=== PATIENT | female | born 1985 | race Caucasian/White ===

== ENCOUNTER 2019-02-22 03:15 | Emergency (ER) | payer OTHER ==
[2019-02-22 03:29] VITALS: BP 144/103
[2019-02-22] MEDS ORDERED: Loperamide 2 MG Cap PO STA (03:42)
[2019-02-22] MEDS ORDERED: Ondansetron 4 MG/2 ML SDV IVPUSH ONE (03:42)
[2019-02-22] MEDS ORDERED: Sodium Chloride 0.9% 1,000 ML IV SCH (03:45)
--- NOTE | 2019-02-22 03:45 | EDM.PDOC ---
ED HPI GENERAL MEDICAL PROBLEM - General Chief Complaint: Gastrointestinal Problem Stated Complaint: POSSIBLE FOOD poisoning Time Seen by Provider: 02/22/19 03:25 Source of Information: Reports: Patient, Family (), RN Notes Reviewed History Limitations: Reports: No Limitations - History of Present Illness INITIAL COMMENTS - FREE TEXT/NARRATIVE: The patient states that she developed nausea, vomiting, and watery, non-bloody diarrhea around 21:00, after eating at a restaurant. She reports midline abdominal pain that developed after she vomited. The pain does not radiate. No back pain. She has not had a fever. No urinary symptoms. No prior similar symptoms. The patient has not taken any [id number] or home remedies. The patient denies eating any bad tasting or spoiled food recently. No similarly ill contacts at home or work. No recent antibiotics. No recent travel. The patient's PCP is ONEAL Duarte. - Related Data Allergies Allergy/AdvReac Type Severity Reaction Status Date / Time Sulfa (Sulfonamide Allergy Swollen Verified 10/24/16 19:56 Antibiotics) Tongue Home Meds: Home Meds Ondansetron [Zofran ODT] 1 tab PO Q8H PRN #10 tab.dis 02/22/19 [Rx] Past Medical History HEENT History: Reports: Allergic Rhinitis Respiratory History: Reports: Asthma (Exercise-induced asthma, suspected) Endocrine/Metabolic History: Reports: Obesity/BMI 30+ - Past Surgical History HEENT Surgical History: Reports: Naso-Sinus Surgery (Bilateral turbinectomy), Oral Surgery (wisdom teeth extraction), Other (See Below) (Mandible modification ) GI Surgical History: Reports: Cholecystectomy (2012) Female Surgical History: Reports: Section (x 1) Social & Family History - Family History Family Medical History: Noncontributory - Tobacco Use Smoking Status *Q: Never Smoker - Caffeine Use Caffeine Use: Reports: None - Alcohol Use Alcohol Use History: Yes Alcohol Use Frequency: Socially - Recreational Drug Use Recreational Drug Use: No - Living Situation & Occupation Living situation: Reports: , with Spouse, with Family (1 child) 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 ED EXAM, GI/ABD - Physical Exam Exam: See Below Exam Limited By: No Limitations General Appearance: Alert, WD/WN, Mild Distress (Appears uncomfortable) Eyes: Bilateral: Normal Appearance, EOMI Ears: Normal External Exam, Hearing Grossly Normal Nose: Normal Inspection Throat/Mouth: Normal Inspection, Normal Lips, Normal Voice, No Airway Compromise Head: Atraumatic, Normocephalic Neck: Normal Inspection, Full Range of Motion Respiratory/Chest: No Respiratory Distress, Lungs Clear, Normal Breath Sounds, No Accessory Muscle Use Cardiovascular: Normal Peripheral Pulses, Regular Rate, Rhythm, No Gallop, No JVD, No Murmur, No Rub GI/Abdominal Exam: Normal Bowel Sounds, Soft, No Organomegaly, No Distention, No Abnormal Bruit, No Mass, Tender (Primarily to the upper abdomen, left greater than right), Other (Obese) (Female) Exam: Deferred Rectal (Female) Exam: Deferred Back Exam: Normal Inspection, Full Range of Motion. No: CVA Tenderness (L), CVA Tenderness (R) Extremities: Normal Inspection, Normal Range of Motion, No Pedal Edema, Normal Capillary Refill Neurological: Alert, Oriented, Normal Cognition, No Motor/Sensory Deficits Psychiatric: Normal Affect Skin Exam: Warm, Dry, Intact, Normal Color, No Rash Course - Vital Signs Last Recorded V/S: Last Vital Signs Temp 36.7 C 02/22/19 03:23 Pulse 92 02/22/19 03:23 Resp 18 02/22/19 03:23 BP 144/103 H 02/22/19 03:23 Pulse Ox 98 02/22/19 03:23 Orthostatic Blood Pressure [ 143/82 Supine] - Orders/Labs/Meds Orders: Active Orders 24 hr Category Date Time Status Sodium Chloride 0.9% [Normal Saline] 1,000 ml Med 02/22/19 03:45 Active IV ASDIRECTED Medication Orders Sodium Chloride (Normal Saline) 1,000 mls @ 150 mls/hr IV ASDIRECTED LETITIA Last Admin: 02/22/19 03:48 Dose: 150 mls/hr Meds: Medications Generic Name Dose Route Start Last Admin Trade Name Freq PRN Reason Stop Dose Admin Sodium Chloride 1,000 mls @ 150 mls/hr 02/22/19 03:45 02/22/19 03:48 Normal Saline IV 150 mls/hr ASDIRECTED LETITIA Administration Discontinued Medications Generic Name Dose Route Start Last Admin Trade Name Freq PRN Reason Stop Dose Admin Loperamide HCl 4 mg 02/22/19 03:42 02/22/19 04:34 Imodium PO 02/22/19 03:43 4 mg ONETIME STA Administration Ondansetron HCl 4 mg 02/22/19 03:42 02/22/19 03:49 Zofran IVPUSH 02/22/19 03:43 4 mg ONETIME ONE Administration - Re-Assessments/Exams Free Text/Narrative Re-Assessment/Exam: 02/22/19 03:43 The patient is suffering from gastroenteritis, and by her history, it is most likely viral in etiology, since she has no fever or bloody diarrhea, and no history of eating bad tasting food, or food that had been left out for a long time. Since her symptoms have been relatively brief, I don't see an indication for performing blood work - it is unlikely that she would have suffered any significant fluid or electrolyte shifts in such a short period of time, however , we can treat her symptoms with IV Zofran and IV fluid, and, once her nausea is under control, oral loperamide. 02/22/19 05:06 The patient is doing well. She did not vomit after she received IV Zofran, and was able to take some water and loperamide. She is now sleeping comfortably. I will discharge her home with a prescription for Zofran ODT, along with over-the- counter loperamide and some dietary recommendations. Departure - Departure Time of Disposition: 05:07 Disposition: Home, Self-Care 01 Condition: Good Clinical Impression: Viral gastroenteritis - Discharge Information *PRESCRIPTION DRUG MONITORING PROGRAM REVIEWED*: Not Applicable *COPY OF PRESCRIPTION DRUG MONITORING REPORT IN PATIENT TISH: Not Applicable Referrals: Judy Garcia PA-C [Primary Care Provider] - Forms: ED Department Discharge Additional Instructions: You were seen in the emergency room for nausea, vomiting, and watery diarrhea, along with some midline abdominal pain. You were given IV fluid, the anti-nausea medicine Zofran, and the anti- diarrheal medicine loperamide in the ER, with improvement in your symptoms. A prescription for Zofran has been sent to the [facility], located at [address] just south and across the [address] from street from [facility]. The pharmacy will be open between noon and 4:00 this afternoon. Dissolve one tablet of Zofran on your tongue up to every 8 hours, as needed for nausea/vomiting. Take one tablet (2 mg) of loperamide (Imodium) after each loose bowel movement, to a maximum of 8 tablets (16 mg) within a 24-hour period. Loperamide is available [id number], and generic is just as good as the brand name. Stay adequately hydrated. Gatorade or Powerade are best. Avoid juice and milk, as these may make your diarrhea worse. Eat a bland diet. Saltine crackers and chicken noodle soup are an excellent choice. You may also have rice, oatmeal, bananas, or toast. Follow-up with your PCP, ONEAL Duarte, as needed. If any other problems, please do not hesitate to return to the ER. - My Orders Last 24 Hours: My Active Orders 02/22/19 03:45 Sodium Chloride 0.9% [Normal Saline] 1,000 ml IV ASDIRECTED - Assessment/Plan Last 24 Hours: My Active Orders 02/22/19 03:45 Sodium Chloride 0.9% [Normal Saline] 1,000 ml IV ASDIRECTED
== END 2019-02-22 05:25 | disposition home or self-care (01) ==
LOC: JD.ED 03:15
DX: A08.4 Viral intestinal infection, unspecified (principal); E66.9 Obesity, unspecified; Z88.2 Allergy status to sulfonamides; Z90.49 Acquired absence of other specified parts of digestive tract; Z98.890 Other specified postprocedural states
CPT/HCPCS: 96361; 96374; 99283; A9270; J2405; J7040

== ENCOUNTER 2020-07-01 05:29 | Inpatient (IN) | payer OTHER ==
--- NOTE | 2020-06-29 06:59 | PCM.LDHP ---
L&D History of Present Illness - General Date of Service: 07/01/20 Admit Problem/Dx: Admission Diagnosis/Problem Admission Diagnosis/Problem 06/29/20 06:47 Nieves is a 34-year-old 2 para 1-0-0-1 white female who is scheduled to be admitted on 07/01/2020 for elective repeat section. Her LINDA is 07/04/2020 placing her at 39-4/7 weeks gestational age upon admission. Source of Information: Patient History Limitations: Reports: No Limitations - History of Present Illness Introduction:: Nieves is a 34-year-old 2 para 1-0-0-1 white female who is scheduled to be admitted on 07/01/2020 for elective repeat section. Her LINDA is 07/04/2020 placing her at 39-4/7 weeks gestational age upon admission. Elective repeat section, its risks, benefits, alternatives of care and follow-up were discussed in detail with the patient. She appears understand, wishes to proceed and has signed consent. 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 Patient reported having menarche at age 13. Cycles q. 28 days, no control at the time of conception. Last menstrual period was relatively certain. Her previous etc. history includes a delivery of a 10 pound 4 ounce male on 11/11/2013 at 39 weeks gestational age. Delivery was for diagnosis of macrosomia. She has spinal anesthetic at that time. Child's name is Nazario. course: Patient was first seen for this on 12/16/2019. She was seen on a regular basis throughout the . She has had normal vital signs throughout the . Her weight gain has been from 267 pounds up to 292.8 pounds for a 25 pound increase. Her fundal height growth has been ahead of schedule and on last evaluation was at 41 cm. Baby is felt to be in a vertex presentation. Her group B strep screen is negative. She had a pre-quell noninvasive test screen during the which was normal. She has an essential tremor. She has a history of asthma. Her Tdap was administered on 04/26/2020. Her risk factors include history of macrosomia, obesity, history of previous section, asthma. Laboratory testing in shows blood to be a be positive with a negative antibody screen. Her first hemoglobin was 14.5 g/dL and platelets were 282,000. Pap smear was negative but was significant for no endocervical cells. She is rubella immune. RPR is nonreactive. Her urine culture was negative. Hepatitis B surface antigen and HIV assays were both negative. Chlamydia and gonorrhea tests were negative. Second trimester labs showed a hemoglobin of 11.2 g/dL and platelets at 270,000. Her diabetic screening test was 119. Her RPR on 04/11/2020 was nonreactive. Her group B strep screen was negative. Allergies: Sulfa which causes anaphylaxis Medications: 1. Ventolin HFA 108 MCG per action. Patient uses 1 to 2 puffs every 4-6 hours as needed. She has not had to use this much during the 2. Tylenol 325 mg tablets 1-2 every 6 hours as needed for pain 3. Fish oil caps 2 daily 4. She eats fruits and greens capsule every day. 5. vitamins daily 6. Probiotic caps. Past medical history: 1. History of depression with last 2. Anaphylaxis with sulfa medication therapy. Past surgical history: 1. 2014 pound 4 ounce baby 2. Cholecystectomy 3. Jaw surgery 4. Sinus surgery Family history: Mother is alive and well. Father is alive and well but with some thyroid dysfunction and high blood pressure on medications 2 brothers are alive and well. One sister alive and well. Maternal grandmother at age 70 secondary to lung disease with a history of smoking. Maternal grandfather at age 60 from heart disease and history of rheumatoid arthritis. Paternal grandmother is alive in her 80s but suffers from Alzheimer's disease paternal grandfather is alive but has bipolar disorder. There is no other family history of cancer, bleeding or clotting disorders, anesthesia related issues or related problems. Social history: Patient is . is Serafin. Patient works at [employer]. They live in [place], [place]. She does not use any significant also alcohol, drugs or tobacco. Review of systems: In general patient has no complaints. Skin: Negative Lungs: No infectious symptoms or shortness of breath Cardiovascular: No chest pain or exercise intolerance Breasts: No lumps, changes in size, pain, dimpling, discharge or axillary or supraclavicular concerns. GI: Negative : Negative Musculoskeletal: Negative Neurological: Negative Physical exam: In general the patient is well-developed, well-nourished, pleasant female of stated age in no acute distress. Reports good activity. On last evaluation in clinic her weight was 292.8 pounds with first weight at 267 pounds. Blood pressure is 125/85. heart rate was 176 and fundal height was 41 cm. He was in a vertex presentation. Skin is warm dry without lesions. HEENT, neck and back within normal limits. Lungs are clear with good breath sounds in all lung cortés. Cardiovascular exam shows regular and rhythm without murmurs. Abdomen is gravid with fundal height of 41 cm. Genital exam deferred Extremities and neurological exam are grossly within normal limits. - Related Data Allergies/Adverse Reactions: Allergies Allergy/AdvReac Type Severity Reaction Status Date / Time Sulfa (Sulfonamide Allergy Swollen Verified 10/24/16 19:56 Antibiotics) Tongue Home Medications: Home Meds Ondansetron [Zofran ODT] 1 tab PO Q8H PRN #10 tab.dis 02/22/19 [Rx] Past Medical History HEENT History: Reports: Allergic Rhinitis Respiratory History: Reports: Asthma Endocrine/Metabolic History: Reports: Obesity/BMI 30+ - Past Surgical History HEENT Surgical History: Reports: Naso-Sinus Surgery, Oral Surgery, Other (See Below) GI Surgical History: Reports: Cholecystectomy Female Surgical History: Reports: Section Social & Family History - Family History Family Medical History: Noncontributory - Caffeine Use Caffeine Use: Reports: None - Living Situation & Occupation Living situation: Reports: , with Spouse, with Family (1 child) 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 39-4/7-week intrauterine , history of previous section done for macrosomia admitted for elective repeat section. 2. Group B strep negative 3. Patient plans to breast-feed 4. Prequel test was negative. 5. Diabetic screening test negative. 6. Tdap given on 04/26/2020 7. Patient is rubella immune 8. Risk factors include obesity, history of macrosomic baby, large for gestational age fundal height, history of asthma, history of previous section Plan: 1. Repeat low uterine segment transverse section through Pfannenstiel skin incision under spinal block. Procedure, risk, benefits, alternatives of care and follow-up were discussed in detail with patient. She appears to understand and wishes to proceed 2. DVT prophylaxis with SCDs 3. Infection prophylaxis with Ancef 3 g IV preop 4. Routine preoperative laboratory evaluation including COVID testing, CBC, type and screen, RPR 4. Support breast-feeding decision
[~2020-07-01 05:29] MED LIST: Sodium Chloride 0.9% 10 ML Syringe FLUSH PRN
[2020-07-01] MEDS ORDERED: Citric Acid/Sodium Citrate Solution 30 ML Cup PO ONE (06:00)
[2020-07-01] MEDS ORDERED: Oxytocin/Lactated Ringers 20 UNIT/1,000 ML BAG IV SCH (06:00)
[2020-07-01] MEDS ORDERED: ceFAZolin 1 GM in Premix Bag 1 BAG IV ONE (06:00)
[2020-07-01] MEDS ORDERED: Metoclopramide 10 MG/2 ML SDV IVPUSH ONE (06:00)
[2020-07-01] MEDS: Lactated Ringers 1,000 ML IV SCH ×2 (06:05→07:27)
[2020-07-01] MEDS ORDERED: ceFAZolin 1 GM Vial ONE ×2 (07:08)
[2020-07-01] MEDS ORDERED: Lactated Ringers 2,000 ML ONE (07:08)
[2020-07-01] MEDS ORDERED: Oxytocin 10 Units/1 ML SDV ONE ×2 (07:08→07:09)
[2020-07-01] MEDS ORDERED: Ketorolac 30 MG/ML SDV ONE (07:08)
[2020-07-01] MEDS ORDERED: Ondansetron 4 MG/2 ML SDV ONE (07:08)
[2020-07-01] MEDS ORDERED: Morphine PF 10 MG/10 ML SDV ONE (07:11)
[2020-07-01] MEDS ORDERED: Bupivacaine 0.5% 30 ML SDV ONE (07:14)
[2020-07-01] MEDS ORDERED: Scopolamine 1.5 MG Transdermal Patch TOP ONE (07:36)
[2020-07-01] MEDS ORDERED: Ondansetron 4 MG/2 ML SDV IVPUSH PRN (08:04)
[2020-07-01] MEDS ORDERED: fentaNYL 100 MCG/2 ML SDV IVPUSH PRN (08:04)
[2020-07-01] MEDS ORDERED: diphenhydrAMINE 50 MG/ML SDV IVPUSH PRN (08:04)
--- NOTE | 2020-07-01 08:30 | PCM.PREANE ---
Preanesthetic Assessment - Procedure Proposed Procedure: Repeat cesarian section - Anesthesia/Transfusion/Family Hx Anesthesia History: Prior Anesthesia Reaction (PONV and itching) Type of Anesthesia Reaction: Excessive Nausea/Vomiting, Excessive Itching Family History of Anesthesia Reaction: No Transfusion History: No Prior Transfusion(s) - Review of Systems General: No Symptoms Pulmonary: No Symptoms Cardiovascular: No Symptoms Gastrointestinal: No Symptoms Neurological: No Symptoms Other: Reports: None - Physical Assessment NPO Status Date: 06/30/20 NPO Status Time: 20:30 Height: 5 ft 11 in Weight: 292 lb ASA Class: 2 Mental Status: Alert & Oriented x3 Airway Class: Mallampati = 2 Dentition: Reports: Normal Dentition Thyro-Mental Finger Breadths: 3 Mouth Opening Finger Breadths: 3 ROM/Head Extension: Full Lungs: Clear to Auscultation, Normal Respiratory Effort Cardiovascular: Regular Rate, Regular Rhythm - Lab Values: Laboratory Last Values WBC 9.89 K/mm3 (3.98-10.04) 07/01/20 06:00 RBC 3.84 M/mm3 (3.98-5.22) L 07/01/20 06:00 Hgb 11.4 gm/dl (11.2-15.7) 07/01/20 06:00 Hct 33.6 % (34.1-44.9) L 07/01/20 06:00 MCV 87.5 fl (79.4-94.8) 07/01/20 06:00 MCH 29.7 pg (25.6-32.2) 07/01/20 06:00 MCHC 33.9 g/dl (32.2-35.5) 07/01/20 06:00 RDW Std Deviation 39.3 fL (36.4-46.3) 07/01/20 06:00 Plt Count 260 K/mm3 (182-369) 07/01/20 06:00 MPV 10.3 fl (9.4-12.3) 07/01/20 06:00 Neut % (Auto) 69.8 % (34.0-71.1) 07/01/20 06:00 Lymph % (Auto) 20.1 % (19.3-51.7) 07/01/20 06:00 Towns % (Auto) 8.5 % (4.7-12.5) 07/01/20 06:00 Eos % (Auto) 1.2 (0.7-5.8) 07/01/20 06:00 Baso % (Auto) 0.1 % (0.1-1.2) 07/01/20 06:00 Neut # (Auto) 6.90 K/mm3 (1.56-6.13) H 07/01/20 06:00 Lymph # (Auto) 1.99 K/mm3 (1.18-3.74) 07/01/20 06:00 Towns # (Auto) 0.84 K/mm3 (0.24-0.36) H 07/01/20 06:00 Eos # (Auto) 0.12 K/mm3 (0.04-0.36) 07/01/20 06:00 Baso # (Auto) 0.01 K/mm3 (0.01-0.08) 07/01/20 06:00 SARS-CoV-2 RNA (NORBERT) Negative (NEGATIVE) 07/01/20 05:45 - Allergies Allergies/Adverse Reactions: Allergies Allergy/AdvReac Type Severity Reaction Status Date / Time Sulfa (Sulfonamide Allergy Swollen Verified 10/24/16 19:56 Antibiotics) Tongue - Anesthesia Plan Pre-Op Medication Ordered: None, Other - Acknowledgements Anesthesia Type Planned: Spinal Pt an Appropriate Candidate for the Planned Anesthesia: Yes Alternatives and Risks of Anesthesia Discussed w Pt/Guardian: Yes Pt/Guardian Understands and Agrees with Anesthesia Plan: Yes PreAnesthesia Questionnaire HEENT History: Reports: Allergic Rhinitis Respiratory History: Reports: Asthma Other Respiratory History: uses ventolin inhaler as needed Gastrointestinal History: Reports: None Genitourinary History: Reports: UTI, Recurrent Other Genitourinary History: frequent uti, improved after gallbladder surgery 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: Neurological History: Reports: Other (See Below) Other Neuro History: essential tremor since teens Endocrine/Metabolic History: Reports: Obesity/BMI 30+ - Past Surgical History HEENT Surgical History: Reports: Naso-Sinus Surgery, Oral Surgery, Other (See Below) GI Surgical History: Reports: Cholecystectomy Female Surgical History: Reports: Section Other Female Surgeries/Procedures: 2014 Endocrine Surgical History: Reports: None Neurological Surgical History: Reports: None - SUBSTANCE USE Smoking Status *Q: Never Smoker Second Hand Smoke Exposure: No Recreational Drug Use History: No - HOME MEDS Home Medications: Home Meds Acetaminophen [Tylenol] 325 mg PO Q6HR PRN 06/30/20 [History] Albuterol [Ventolin HFA] 1 - 2 puff INH Q4H PRN 06/30/20 [History] Doxylamine Succinate [Unisom Sleep Aid] 25 mg PO BEDTIME PRN 06/30/20 [History] L.acidoph,Paracasei, B.lactis [Probiotic] 1 each PO DAILY 06/30/20 [History] [place]-3 Fatty Acids/Fish Oil [Fish Oil 1,000 mg Capsule] 2 each PO DAILY 06/30/20 [History] Pnv No.95/Ferrous Fum/Folic AC [ Vitamin Tablet] 1 each PO DAILY 06/30/20 [History] Pyridoxine HCl (Vitamin B6) [B-6] 1 tab PO BEDTIME 06/30/20 [History] - CURRENT (IN HOUSE) MEDS Current Meds: Current Medications Diphenhydramine HCl (Benadryl) 25 mg IVPUSH Q6H PRN PRN Reason: Pruritis Fentanyl (Sublimaze) 50 mcg IVPUSH Q5M PRN PRN Reason: Pain Oxytocin/Lactated Ringer's (Pitocin In Lr 20 Units/1,000 Ml) 20 unit in 1,000 mls @ 500 mls/hr IV TITRATE LETITIA; Protocol Lactated Ringer's (Ringers, Lactated) 1,000 mls @ 125 mls/hr IV ASDIRECTED LETITIA Last Admin: 07/01/20 07:27 Dose: 125 mls/hr Documented by: Ondansetron HCl (Zofran) 4 mg IVPUSH ONETIME PRN PRN Reason: Nausea/Vomiting Sodium Chloride (Saline Flush) 10 ml FLUSH ASDIRECTED PRN PRN Reason: Keep Vein Open Discontinued Medications Bupivacaine HCl (Marcaine 0.5%) Confirm Administered Dose 30 ml .ROUTE .STK-MED ONE Stop: 07/01/20 07:15 Cefazolin Sodium (Ancef) Confirm Administered Dose 2 gm .ROUTE .STK-MED ONE Stop: 07/01/20 07:09 Cefazolin Sodium (Ancef) Confirm Administered Dose 1 gm .ROUTE .STK-MED ONE Stop: 07/01/20 07:09 Citric Acid/Sodium Citrate (Bicitra Solution) 30 ml PO ONETIME ONE Stop: 07/01/20 06:01 Last Admin: 07/01/20 07:26 Dose: 30 ml Documented by: Cefazolin Sodium/Dextrose 1 gm (/ Premix) 50 mls @ 100 mls/hr IV ONETIME ONE Stop: 07/01/20 06:29 Lactated Ringer's (Ringers, Lactated) Confirm Administered Dose 2,000 mls @ as directed .ROUTE .STK-MED ONE Stop: 07/01/20 07:09 Ketorolac Tromethamine (Toradol) Confirm Administered Dose 30 mg .ROUTE .STK-MED ONE Stop: 07/01/20 07:09 Metoclopramide HCl (Reglan) 10 mg IVPUSH ONETIME ONE Stop: 07/01/20 06:01 Last Admin: 07/01/20 07:26 Dose: 10 mg Documented by: Miscellaneous Medication (Phenylephrine 1 Mg/10 Ml-Ns) Confirm Administered Dose 1 mg .ROUTE .STK-MED ONE Stop: 07/01/20 08:07 Morphine Sulfate (Duramorph Pf) Confirm Administered Dose 10 mg .ROUTE .STK-MED ONE Stop: 07/01/20 07:12 Ondansetron HCl (Zofran) Confirm Administered Dose 4 mg .ROUTE .STK-MED ONE Stop: 07/01/20 07:09 Oxytocin (Pitocin) Confirm Administered Dose 10 unit .ROUTE .STK-MED ONE Stop: 07/01/20 07:09 Oxytocin (Pitocin) Confirm Administered Dose 10 unit .ROUTE .STK-MED ONE Stop: 07/01/20 07:10 Scopolamine (Transderm-Scop) 1.5 mg TOP ONETIME ONE Stop: 07/01/20 07:37
--- NOTE | 2020-07-01 08:51 | PCM.POSTAN ---
POST ANESTHESIA ASSESSMENT - MENTAL STATUS Mental Status: Alert, Oriented - VITAL SIGNS Vital Signs: 133/67 98% 91 12 97.4f - RESPIRATORY Respiratory Status: Respiratory Rate WNL, Airway Patent, O2 Saturation Stable, Supplemental Oxygen - CARDIOVASCULAR CV Status: Pulse Rate WNL, Blood Pressure Stable - GASTROINTESTINAL GI Status: No Symptoms - PAIN Pain Score: 0 - POST OP HYDRATION Hydration Status: Adequate & Stable
[2020-07-01] MEDS ORDERED: Non-Formulary Medication 1 Each (Albuterol 0 PUFF) INH PRN (08:54)
--- NOTE | 2020-07-01 09:04 | PCM.OPNOTE ---
- General Post-Op/Procedure Note Date of Surgery/Procedure: 07/01/20 Operative Procedure(s): Repeat low in segment transverse section through Pfannenstiel skin incision under spinal block. Findings: Uterus tubes ovaries consistent with term . Uterus tubes ovaries normal in appearance. Baby in vertex presentation. Amniotic fluid clear in normal amounts. Lower uterine segment was thin at no more than 4 mm. Baby was a female born at 0813 hrs. with Apgars of 8 and 10. 9 pounds 4 ounces Pre Op Diagnosis: 1. 39-4/7-week intrauterine , history of previous section with desire for repeat section. 2. History of size greater than dates Post-Op Diagnosis: Same Anesthesia Technique: Spinal Other Anesthesia Type: Marcaine 0.5% - 20 cc local Primary Surgeon: Deandre Milan Secondary Surgeon: Elissa Marrero Anesthesia Provider: Jonathon Ferrera Reason Belt Worker Was Necessary: Retraction, assistance, patient safety, quality of care. Fluid Replacement, Intraop: 2,700 Output, Urine Amount: 150 EBL in mLs: 400 Drain/Tube Comments:: Indwelling bladder catheter Complications: None Condition: Good Free Text/Narrative:: Surgery duration: 29 minutes Surgery duration: Procedure: The patient is appropriately consented. Patient was transferred to the room and placed in a sitting position. Spinal anesthesia was administered. After confirmation of adequate anesthesia patient was placed in a supine position with a wedge under her right side to facilitate left lateral positioning. The patient was prepped and draped in usual fashion after Perez catheter was already placed . The anesthetic was checked and found to be adequate. 20 mL of Marcaine 0.5% was injected locally in the Pfannenstiel incision site. The Pfannenstiel skin incision was then made and carried down through skin, subcutaneous and fascial layers. The fascia was then undermined moscoso periorly and inferiorly to allow for adequate operating room. The recti muscles midline and preperitoneal fat was bluntly dissected. Peritoneal cavity was entered longitudinally. The vesicouterine peritoneum was then incised transversely and bladder flap was developed. Myometrium was incised transversely to the level of the amniotic sac. This incision was extended bilaterally in a blunt fashion. The amniotic sac was then ruptured resulting in clear amniotic fluid. A hand is placed in the low uterine segment and the baby's head was brought forth through the incision. The baby was completely delivered using fundal pressure in a routine fashion. The nose and mouth were bulb suctioned. Baby's cord was clamped x2 cut and baby was handed off to attending office manager Dr Mckeon. Placenta was expressed after cord blood was obtained. Uterus was then exteriorized to allow for easier closure. The cervix was assessed and found to be dilated adequately to allow egress of blood. The uterus was closed in 2 layers. The first layer a running locked suture of 0 Monocryl, the second layer a running locked vertical mattress suture of 0 Monocryl. [id number] suture was placed at right end of the incision to control 1 bleeder. Hemostasis confirmed at this time. Sponge instrument needle counts are correct. The uterus was returned to the abdominal cavity and lateral gutters were cleared of blood. Once again sponge needle counts are correct. The anterior abdominal wall was closed with a #1 PDS suture from angle to angle. The subcutaneous area was found to be free of any bleeders. 3 interrupted sutures of 3-0 Monocryl were used to reapproximate the subcutaneous layer.Skin was closed with a running subcuticular stitch of 3-0 Monocryl in a vertical mattress suture fashion using a Noam needle. Prineo mesh/glue was then applied to further approximate the incision. It should be noted that patient received 3 g of Ancef preoperatively for infection prophylaxis and had Pitocin infused after delivery of the placenta to facilitate uterine contraction. She also had sequential compression stockings in place for DVT prophylaxis. Patient was discharged from the operating room in satisfactory condition.
[2020-07-01] MEDS ORDERED: Docusate Sodium 100 MG Cap PO PRN (10:11)
[2020-07-01] MEDS ORDERED: Naloxone 0.4 MG/ML SDV IVPUSH PRN (10:11)
[2020-07-01] MEDS ORDERED: Acetaminophen/oxyCODONE 325-5 MG Tab PO PRN (10:11)
[2020-07-01] MEDS ORDERED: Ondansetron 4 MG/2 ML SDV IV PRN (10:11)
[2020-07-01] MEDS ORDERED: Dextrose 5%-Lactated Ringers 1,000 ML IV SCH (10:11)
[2020-07-01] MEDS ORDERED: ePHEDrine 50 MG/ML SDV IVPUSH PRN (10:11)
[2020-07-01] MEDS: diphenhydrAMINE 50 MG/ML SDV IVPUSH PRN ×2 (11:01→20:51)
[2020-07-01] MEDS: Prenatal Multivitamin with Calcium/Folic Acid/Iron Tab PO SCH (11:03)
[2020-07-01] MEDS: Ketorolac 30 MG/ML SDV IVPUSH SCH ×3 (11:04→21:02)
[2020-07-01] MEDS: Simethicone 80 MG Tab.Chew PO SCH ×3 (12:58→21:01)
[2020-07-01] MEDS ORDERED: Ketorolac 30 MG/ML SDV IVPUSH SCH (13:30)
--- NOTE | 2020-07-02 02:30 | PCM.PNPP ---
- General Info Date of Service: 07/02/20 Functional Status: Reports: Pain Controlled, Tolerating Diet, Ambulating, Urinating - Review of Systems General: Reports: No Symptoms Pulmonary: Reports: No Symptoms Cardiovascular: Reports: No Symptoms Gastrointestinal: Reports: No Symptoms Genitourinary: Reports: No Symptoms Musculoskeletal: Reports: No Symptoms Neurological: Reports: No Symptoms - Patient Data Vital Signs - Most Recent: Last Vital Signs Temp 36.7 C 07/02/20 00:10 Pulse 82 07/02/20 00:10 Resp 16 07/02/20 02:00 BP 130/71 07/02/20 00:10 Pulse Ox 98 07/02/20 02:00 Weight - Most Recent: 132.449 kg I&O - Last 24 Hours: Intake & Output 07/01/20 07/01/20 07/02/20 14:59 22:59 06:59 Intake Total 3000 4040 Output Total 550 400 650 Balance 2450 3640 -650 Lab Results - Last 24 Hours: Laboratory Results - last 24 hr 07/01/20 07/01/20 07/01/20 Range/Units 05:45 06:00 06:00 WBC (3.98-10.04) K/mm3 RBC (3.98-5.22) M/mm3 Hgb (11.2-15.7) gm/dl Hct (34.1-44.9) % MCV (79.4-94.8) fl MCH (25.6-32.2) pg MCHC (32.2-35.5) g/dl RDW Std Deviation (36.4-46.3) fL Plt Count (182-369) K/mm3 MPV (9.4-12.3) fl Neut % (Auto) (34.0-71.1) % Lymph % (Auto) (19.3-51.7) % [place] % (Auto) (4.7-12.5) % Eos % (Auto) (0.7-5.8) Baso % (Auto) (0.1-1.2) % Neut # (Auto) (1.56-6.13) K/mm3 Lymph # (Auto) (1.18-3.74) K/mm3 [place] # (Auto) (0.24-0.36) K/mm3 Eos # (Auto) (0.04-0.36) K/mm3 Baso # (Auto) (0.01-0.08) K/mm3 RPR Non-reactive (NONREACTIVE) SARS-CoV-2 RNA (NORBERT) Negative (NEGATIVE) Blood Type AB POSITIVE Gel Antibody Screen Negative 07/01/20 Range/Units 06:00 WBC 9.89 (3.98-10.04) K/mm3 RBC 3.84 L (3.98-5.22) M/mm3 Hgb 11.4 (11.2-15.7) gm/dl Hct 33.6 L (34.1-44.9) % MCV 87.5 (79.4-94.8) fl MCH 29.7 (25.6-32.2) pg MCHC 33.9 (32.2-35.5) g/dl RDW Std Deviation 39.3 (36.4-46.3) fL Plt Count 260 (182-369) K/mm3 MPV 10.3 (9.4-12.3) fl Neut % (Auto) 69.8 (34.0-71.1) % Lymph % (Auto) 20.1 (19.3-51.7) % [place] % (Auto) 8.5 (4.7-12.5) % Eos % (Auto) 1.2 (0.7-5.8) Baso % (Auto) 0.1 (0.1-1.2) % Neut # (Auto) 6.90 H (1.56-6.13) K/mm3 Lymph # (Auto) 1.99 (1.18-3.74) K/mm3 [place] # (Auto) 0.84 H (0.24-0.36) K/mm3 Eos # (Auto) 0.12 (0.04-0.36) K/mm3 Baso # (Auto) 0.01 (0.01-0.08) K/mm3 RPR (NONREACTIVE) SARS-CoV-2 RNA ([facility]ERT) (NEGATIVE) Blood Type Gel Antibody Screen Med Orders - Current: Current Medications Diphenhydramine HCl (Benadryl) 25 mg IVPUSH Q6H PRN PRN Reason: Itching or Nausea Last Admin: 07/01/20 20:51 Dose: 25 mg Documented by: Docusate Sodium (Colace) 100 mg PO Q12H PRN PRN Reason: Constipation Ephedrine Sulfate (Ephedrine Sulfate) 5 mg IVPUSH SEECOMMENT PRN PRN Reason: Other Naloxone HCl (Narcan) 0.1 mg IVPUSH SEECOMMENT PRN PRN Reason: Respiratory Depression Non-Formulary Medication (Albuterol) 1 - 2 puff INH Q4H PRN PRN Reason: Shortness of Breath Ondansetron HCl (Zofran) 4 mg IV Q4H PRN PRN Reason: Nausea/Vomiting Oxycodone/Acetaminophen (Percocet 325-5 Mg) 1 tab PO Q4H PRN PRN Reason: Pain (moderate 4-6) Oxycodone/Acetaminophen (Percocet 325-5 Mg) 2 tab PO Q4H PRN PRN Reason: Pain (severe 7-10) Prenat Multivit/[place]/Iron/Folic Ac ( Plus Iron) 1 each PO DAILY [facility] Last Admin: 07/01/20 11:03 Dose: 1 each Documented by: Simethicone (Simethicone) 160 mg PO QID [facility] Last Admin: 07/01/20 21:01 Dose: 160 mg Documented by: Discontinued Medications Bupivacaine HCl (Marcaine 0.5%) Confirm Administered Dose 30 ml .ROUTE .STK-MED ONE Stop: 07/01/20 07:15 Last Admin: 07/01/20 08:09 Dose: 20 ml Documented by: Cefazolin Sodium (Ancef) Confirm Administered Dose 2 gm .ROUTE .STK-MED ONE Stop: 07/01/20 07:09 Cefazolin Sodium (Ancef) Confirm Administered Dose 1 gm .ROUTE .STK-MED ONE Stop: 07/01/20 07:09 Citric Acid/Sodium Citrate (Bicitra Solution) 30 ml PO ONETIME ONE Stop: 07/01/20 06:01 Last Admin: 07/01/20 07:26 Dose: 30 ml Documented by: Diphenhydramine HCl (Benadryl) 25 mg IVPUSH Q6H PRN PRN Reason: Pruritis Fentanyl (Sublimaze) 50 mcg IVPUSH Q5M PRN PRN Reason: Pain Cefazolin Sodium/Dextrose 1 gm (/ Premix) 50 mls @ 100 mls/hr IV ONETIME ONE Stop: 07/01/20 06:29 Last Admin: 07/01/20 10:33 Dose: Not Given Documented by: Oxytocin/Lactated Ringer's (Pitocin In Lr 20 Units/1,000 Ml) 20 unit in 1,000 mls @ 500 mls/hr IV TITRATE LETITIA; Protocol Lactated Ringer's (Ringers, Lactated) 1,000 mls @ 125 mls/hr IV ASDIRECTED [facility] Last Admin: 07/01/20 07:27 Dose: 125 mls/hr Documented by: Lactated Ringer's (Ringers, Lactated) Confirm Administered Dose 2,000 mls @ as directed .ROUTE .STK-MED ONE Stop: 07/01/20 07:09 Dextrose/Lactated Ringer's (Dextrose 5%-Lactated Ringers) 1,000 mls @ 125 mls/hr IV ASDIRECTED [facility] Stop: 07/01/20 18:10 Last Admin: 07/01/20 11:42 Dose: 125 mls/hr Documented by: Ketorolac Tromethamine (Toradol) Confirm Administered Dose 30 mg .ROUTE .STK-MED ONE Stop: 07/01/20 07:09 Ketorolac Tromethamine (Toradol) 30 mg IVPUSH Q6H [facility] Stop: 07/02/20 01:31 Ketorolac Tromethamine (Toradol) 30 mg IVPUSH Q6H [facility] Stop: 07/01/20 20:31 Last Admin: 07/01/20 21:02 Dose: 30 mg Documented by: Metoclopramide HCl (Reglan) 10 mg IVPUSH ONETIME ONE Stop: 07/01/20 06:01 Last Admin: 07/01/20 07:26 Dose: 10 mg Documented by: Miscellaneous Medication (Phenylephrine 1 Mg/10 Ml-Ns) Confirm Administered Dose 1 mg .ROUTE .STK-MED ONE Stop: 07/01/20 08:07 Morphine Sulfate (Duramorph Pf) Confirm Administered Dose 10 mg .ROUTE .STK-MED ONE Stop: 07/01/20 07:12 Ondansetron HCl (Zofran) Confirm Administered Dose 4 mg .ROUTE .STK-MED ONE Stop: 07/01/20 07:09 Ondansetron HCl (Zofran) 4 mg IVPUSH ONETIME PRN PRN Reason: Nausea/Vomiting Oxytocin (Pitocin) Confirm Administered Dose 10 unit .ROUTE .STK-MED ONE Stop: 07/01/20 07:09 Oxytocin (Pitocin) Confirm Administered Dose 10 unit .ROUTE .STK-MED ONE Stop: 07/01/20 07:10 Scopolamine (Transderm-Scop) 1.5 mg TOP ONETIME ONE Stop: 07/01/20 07:37 Last Admin: 07/01/20 07:43 Dose: 1.5 mg Documented by: Sodium Chloride (Saline Flush) 10 ml FLUSH ASDIRECTED PRN PRN Reason: Keep Vein Open - Interaction Disposition, : [place] in Room with Family Infant Interaction: Holding Infant Infant Feeding: Bottle Fed Infant Support Person: - Recovery Exam Fundal Tone: Firm Fundal Level: At Umbilicus Fundal Placement: Midline Lochia Amount: Small Lochia Color: Rubra/Red Perineum Description: Intact, Minimal Bruising/Swelling Episiotomy/Laceration: None Bladder Status: Indwelling Catheter in Place Urinary Elimination: Indwelling Catheter - Exam General: Alert, Oriented, Cooperative Lungs: Clear to Auscultation, Normal Respiratory Effort Cardiovascular: Regular Rate, Regular Rhythm GI/Abdominal Exam: Soft, Tender (appropriate ) Extremities: Normal Inspection Skin: Warm, Dry, Intact Wound/Incisions: Healing Well, No Drainage - Problem List Review Problem List Initiated/Reviewed/Updated: Yes - Assessment Assessment:: POD#1 - Plan Plan:: * Routine cares * Bottle feeding * Discharge home likely tomorrow
[2020-07-02] MEDS ORDERED: Ketorolac 30 MG/ML SDV IVPUSH ONE (03:32)
[2020-07-02] MEDS: Acetaminophen/oxyCODONE 325-5 MG Tab PO PRN ×3 (10:06→19:54)
[2020-07-02] MEDS: Simethicone 80 MG Tab.Chew PO SCH ×4 (10:06→20:04)
[2020-07-02] MEDS: Prenatal Multivitamin with Calcium/Folic Acid/Iron Tab PO SCH (10:06)
--- NOTE | 2020-07-02 11:16 | PCM48HPAN ---
Post Anesthesia Note - EVALUATION WITHIN 48HRS OF ANESTHETIC Vital Signs in Normal Range: Yes Patient Participated in Evaluation: Yes Respiratory Function Stable: Yes Airway Patent: Yes Cardiovascular Function Stable: Yes Hydration Status Stable: Yes Pain Control Satisfactory: Yes Nausea and Vomiting Control Satisfactory: Yes Mental Status Recovered: Yes Vital Signs: Last Vital Signs Temp 36.7 C 07/02/20 04:09 Pulse 74 07/02/20 04:09 Resp 16 07/02/20 07:00 BP 128/79 07/02/20 04:09 Pulse Ox 100 07/02/20 07:00 - COMMENTS/OBSERVATIONS Free Text/Narrative:: Routine course of recovery following spinal anesthetic for . Patient doing well. She reports she hasn't had any nausea this time and attributes this fact to having a scopolamine patch in place. No concerns at this time from my perspective.
[2020-07-02] MEDS: Ibuprofen 600 MG Tab PO PRN (13:03)
[2020-07-02] MEDS ORDERED: Acetaminophen 325 MG Tab PO PRN (13:50)
[2020-07-03] MEDS: Acetaminophen/oxyCODONE 325-5 MG Tab PO PRN ×2 (02:08→08:11)
[2020-07-03] MEDS: Ibuprofen 600 MG Tab PO PRN ×2 (05:05→11:07)
[2020-07-03] MEDS: Simethicone 80 MG Tab.Chew PO SCH (08:11)
[2020-07-03] MEDS: Prenatal Multivitamin with Calcium/Folic Acid/Iron Tab PO SCH (08:11)
--- NOTE | 2020-07-03 08:18 | PCM.DCSUM1 ---
Discharge Summary - Discharge Data Discharge Date: 07/03/20 Discharge Disposition: Home, Self-Care 01 Condition: Good - Referral to Home Health Primary Care Physician: Deandre Milan MD - Patient Summary/Data Operative Procedure(s) Performed: Repeat low in segment transverse section through Pfannenstiel skin incision under spinal block. Complications: None Consults: None Recommended Follow-up Testing/Procedures: Follow up in 2 weeks Hospital Course: 34 y/o admitted for planned RLTCS. Surgery uncomplicated. See operative note. did well and was meeting goals by POD#2. Was thus discharged to home - Patient Instructions Diet: Regular Diet as Tolerated Activity: No Lifting Over 10 Pounds (10-15 lbs) Activity, Other: Pelvic rest for 6 weeks Driving: Do Not Drive (While taking pain medications ) Showering/Bathing: May Shower, No Tub Bathing/Swimming Wound/Incision Care: Keep Operative Site/Wound Site Clean and Dry Notify Provider of: Fever, Increased Pain, Swelling and Redness, Drainage, Nausea and/or Vomiting - Discharge Plan *PRESCRIPTION DRUG MONITORING PROGRAM REVIEWED*: No *COPY OF PRESCRIPTION DRUG MONITORING REPORT IN PATIENT TISH: No Prescriptions/Med Rec: Acetaminophen/oxyCODONE [Percocet 325-5 MG] 2 tab PO Q6H PRN #25 tablet PRN Reason: Pain (Severe 7-10) Home Medications: Home Meds Albuterol [Ventolin HFA] 1 - 2 puff INH Q4H PRN 06/30/20 [History] Pnv No.95/Ferrous Fum/Folic AC [ Vitamin Tablet] 1 each PO DAILY 06/30/20 [History] Acetaminophen/oxyCODONE [Percocet 325-5 MG] 2 tab PO Q6H PRN #25 tablet 07/02/20 [Rx] Docusate Sodium [Colace] 100 mg PO Q12H PRN cap 07/02/20 [Rx] Ibuprofen [Motrin] 600 mg PO Q6H PRN tablet 07/02/20 [Rx] Vit with Ca/FA/Iron [ Plus Iron] 1 each PO DAILY tablet 07/02/20 [Rx] Patient Handouts: and Low Milk Supply, [id number], Care After Delivery, Breast Pumping Tips, [id number] Referrals: Deandre Milan MD [Primary Care Provider] - (2 weeks for check ) - Discharge Summary/Plan Comment DC Time >30 min.: No - Patient Data Vitals - Most Recent: Last Vital Signs Temp 36.7 C 07/03/20 05:05 Pulse 81 07/03/20 05:05 Resp 12 07/03/20 05:05 BP 125/70 07/03/20 05:05 Pulse Ox 93 L 07/03/20 05:05 Weight - Most Recent: 132.449 kg I&O - Last 24 hours: Intake & Output 07/02/20 07/03/20 07/03/20 22:59 06:59 14:59 Intake Total 1520 Balance 1520 Med Orders - Current: Current Medications Acetaminophen (Tylenol) 650 mg PO Q6H PRN PRN Reason: Pain Diphenhydramine HCl (Benadryl) 25 mg IVPUSH Q6H PRN PRN Reason: Itching or Nausea Last Admin: 07/01/20 20:51 Dose: 25 mg Documented by: Docusate Sodium (Colace) 100 mg PO Q12H PRN PRN Reason: Constipation Last Admin: 07/02/20 13:06 Dose: 100 mg Documented by: Ephedrine Sulfate (Ephedrine Sulfate) 5 mg IVPUSH SEECOMMENT PRN PRN Reason: Other Ibuprofen (Motrin) 600 mg PO Q6H PRN PRN Reason: Pain Last Admin: 07/03/20 05:05 Dose: 600 mg Documented by: Naloxone HCl (Narcan) 0.1 mg IVPUSH SEECOMMENT PRN PRN Reason: Respiratory Depression Non-Formulary Medication (Albuterol) 1 - 2 puff INH Q4H PRN PRN Reason: Shortness of Breath Ondansetron HCl (Zofran) 4 mg IV Q4H PRN PRN Reason: Nausea/Vomiting Oxycodone/Acetaminophen (Percocet 325-5 Mg) 1 tab PO Q4H PRN PRN Reason: Pain (moderate 4-6) Last Admin: 07/03/20 08:11 Dose: 1 tab Documented by: Oxycodone/Acetaminophen (Percocet 325-5 Mg) 2 tab PO Q4H PRN PRN Reason: Pain (severe 7-10) Prenat Multivit/[place]/Iron/Folic Ac ( Plus Iron) 1 each PO DAILY [facility] Last Admin: 07/03/20 08:11 Dose: 1 each Documented by: Simethicone (Simethicone) 160 mg PO QID [facility] Last Admin: 07/03/20 08:11 Dose: 160 mg Documented by: Discontinued Medications Bupivacaine HCl (Marcaine 0.5%) Confirm Administered Dose 30 ml .ROUTE .STK-MED ONE Stop: 07/01/20 07:15 Last Admin: 07/01/20 08:09 Dose: 20 ml Documented by: Cefazolin Sodium (Ancef) Confirm Administered Dose 2 gm .ROUTE .STK-MED ONE Stop: 07/01/20 07:09 Cefazolin Sodium (Ancef) Confirm Administered Dose 1 gm .ROUTE .ST-MED ONE Stop: 07/01/20 07:09 Citric Acid/Sodium Citrate (Bicitra Solution) 30 ml PO ONETIME ONE Stop: 07/01/20 06:01 Last Admin: 07/01/20 07:26 Dose: 30 ml Documented by: Diphenhydramine HCl (Benadryl) 25 mg IVPUSH Q6H PRN PRN Reason: Pruritis Fentanyl (Sublimaze) 50 mcg IVPUSH Q5M PRN PRN Reason: Pain Cefazolin Sodium/Dextrose 1 gm (/ Premix) 50 mls @ 100 mls/hr IV ONETIME ONE Stop: 07/01/20 06:29 Last Admin: 07/01/20 10:33 Dose: Not Given Documented by: Oxytocin/Lactated Ringer's (Pitocin In Lr 20 Units/1,000 Ml) 20 unit in 1,000 mls @ 500 mls/hr IV TITRATE LETITIA; Protocol Lactated Ringer's (Ringers, Lactated) 1,000 mls @ 125 mls/hr IV ASDIRECTED [facility] Last Admin: 07/01/20 07:27 Dose: 125 mls/hr Documented by: Lactated Ringer's (Ringers, Lactated) Confirm Administered Dose 2,000 mls @ as directed .ROUTE .STK-MED ONE Stop: 07/01/20 07:09 Dextrose/Lactated Ringer's (Dextrose 5%-Lactated Ringers) 1,000 mls @ 125 mls/hr IV ASDIRECTED [facility] Stop: 07/01/20 18:10 Last Admin: 07/01/20 11:42 Dose: 125 mls/hr Documented by: Ketorolac Tromethamine (Toradol) Confirm Administered Dose 30 mg .ROUTE .STK-MED ONE Stop: 07/01/20 07:09 Ketorolac Tromethamine (Toradol) 30 mg IVPUSH Q6H [facility] Stop: 07/02/20 01:31 Ketorolac Tromethamine (Toradol) 30 mg IVPUSH Q6H [facility] Stop: 07/01/20 20:31 Last Admin: 07/01/20 21:02 Dose: 30 mg Documented by: Ketorolac Tromethamine (Toradol) 30 mg IVPUSH ONETIME ONE Stop: 07/02/20 03:33 Last Admin: 07/02/20 04:05 Dose: 30 mg Documented by: Metoclopramide HCl (Reglan) 10 mg IVPUSH ONETIME ONE Stop: 07/01/20 06:01 Last Admin: 07/01/20 07:26 Dose: 10 mg Documented by: Miscellaneous Medication (Phenylephrine 1 Mg/10 Ml-Ns) Confirm Administered Dose 1 mg .ROUTE .STK-MED ONE Stop: 07/01/20 08:07 Morphine Sulfate (Duramorph Pf) Confirm Administered Dose 10 mg .ROUTE .STK-MED ONE Stop: 07/01/20 07:12 Ondansetron HCl (Zofran) Confirm Administered Dose 4 mg .ROUTE .STK-MED ONE Stop: 07/01/20 07:09 Ondansetron HCl (Zofran) 4 mg IVPUSH ONETIME PRN PRN Reason: Nausea/Vomiting Oxytocin (Pitocin) Confirm Administered Dose 10 unit .ROUTE .STK-MED ONE Stop: 07/01/20 07:09 Oxytocin (Pitocin) Confirm Administered Dose 10 unit .ROUTE .STK-MED ONE Stop: 07/01/20 07:10 Scopolamine (Transderm-Scop) 1.5 mg TOP ONETIME ONE Stop: 07/01/20 07:37 Last Admin: 07/01/20 07:43 Dose: 1.5 mg Documented by: Sodium Chloride (Saline Flush) 10 ml FLUSH ASDIRECTED PRN PRN Reason: Keep Vein Open
--- NOTE | 2020-07-03 08:18 | PCM.PNPP ---
- General Info Date of Service: 07/03/20 Functional Status: Reports: Pain Controlled, Tolerating Diet, Ambulating, Urinating - Review of Systems General: Reports: No Symptoms Pulmonary: Reports: No Symptoms Cardiovascular: Reports: No Symptoms Gastrointestinal: Reports: Abdominal Pain (incision pain - managed with medications ) Genitourinary: Reports: No Symptoms Musculoskeletal: Reports: No Symptoms - Patient Data Vital Signs - Most Recent: Last Vital Signs Temp 36.7 C 07/03/20 05:05 Pulse 81 07/03/20 05:05 Resp 12 07/03/20 05:05 BP 125/70 07/03/20 05:05 Pulse Ox 93 L 07/03/20 05:05 Weight - Most Recent: 132.449 kg I&O - Last 24 Hours: Intake & Output 07/02/20 07/03/20 07/03/20 22:59 06:59 14:59 Intake Total 1520 Balance 1520 Med Orders - Current: Current Medications Acetaminophen (Tylenol) 650 mg PO Q6H PRN PRN Reason: Pain Diphenhydramine HCl (Benadryl) 25 mg IVPUSH Q6H PRN PRN Reason: Itching or Nausea Last Admin: 07/01/20 20:51 Dose: 25 mg Documented by: Docusate Sodium (Colace) 100 mg PO Q12H PRN PRN Reason: Constipation Last Admin: 07/02/20 13:06 Dose: 100 mg Documented by: Ephedrine Sulfate (Ephedrine Sulfate) 5 mg IVPUSH SEECOMMENT PRN PRN Reason: Other Ibuprofen (Motrin) 600 mg PO Q6H PRN PRN Reason: Pain Last Admin: 07/03/20 05:05 Dose: 600 mg Documented by: Naloxone HCl (Narcan) 0.1 mg IVPUSH SEECOMMENT PRN PRN Reason: Respiratory Depression Non-Formulary Medication (Albuterol) 1 - 2 puff INH Q4H PRN PRN Reason: Shortness of Breath Ondansetron HCl (Zofran) 4 mg IV Q4H PRN PRN Reason: Nausea/Vomiting Oxycodone/Acetaminophen (Percocet 325-5 Mg) 1 tab PO Q4H PRN PRN Reason: Pain (moderate 4-6) Last Admin: 07/03/20 08:11 Dose: 1 tab Documented by: Oxycodone/Acetaminophen (Percocet 325-5 Mg) 2 tab PO Q4H PRN PRN Reason: Pain (severe 7-10) Prenat Multivit/[place]/Iron/Folic Ac ( Plus Iron) 1 each PO DAILY [facility] Last Admin: 07/03/20 08:11 Dose: 1 each Documented by: Simethicone (Simethicone) 160 mg PO QID LETITIA Last Admin: 07/03/20 08:11 Dose: 160 mg Documented by: Discontinued Medications Bupivacaine HCl (Marcaine 0.5%) Confirm Administered Dose 30 ml .ROUTE .STK-MED ONE Stop: 07/01/20 07:15 Last Admin: 07/01/20 08:09 Dose: 20 ml Documented by: Cefazolin Sodium (Ancef) Confirm Administered Dose 2 gm .ROUTE .STK-MED ONE Stop: 07/01/20 07:09 Cefazolin Sodium (Ancef) Confirm Administered Dose 1 gm .ROUTE .STK-MED ONE Stop: 07/01/20 07:09 Citric Acid/Sodium Citrate (Bicitra Solution) 30 ml PO ONETIME ONE Stop: 07/01/20 06:01 Last Admin: 07/01/20 07:26 Dose: 30 ml Documented by: Diphenhydramine HCl (Benadryl) 25 mg IVPUSH Q6H PRN PRN Reason: Pruritis Fentanyl (Sublimaze) 50 mcg IVPUSH Q5M PRN PRN Reason: Pain Cefazolin Sodium/Dextrose 1 gm (/ Premix) 50 mls @ 100 mls/hr IV ONETIME ONE Stop: 07/01/20 06:29 Last Admin: 07/01/20 10:33 Dose: Not Given Documented by: Oxytocin/Lactated Ringer's (Pitocin In Lr 20 Units/1,000 Ml) 20 unit in 1,000 mls @ 500 mls/hr IV TITRATE LETITIA; Protocol Lactated Ringer's (Ringers, Lactated) 1,000 mls @ 125 mls/hr IV ASDIRECTED [facility] Last Admin: 07/01/20 07:27 Dose: 125 mls/hr Documented by: Lactated Ringer's (Ringers, Lactated) Confirm Administered Dose 2,000 mls @ as directed .ROUTE .STK-MED ONE Stop: 07/01/20 07:09 Dextrose/Lactated Ringer's (Dextrose 5%-Lactated Ringers) 1,000 mls @ 125 mls/hr IV ASDIRECTED LETITIA Stop: 07/01/20 18:10 Last Admin: 07/01/20 11:42 Dose: 125 mls/hr Documented by: Ketorolac Tromethamine (Toradol) Confirm Administered Dose 30 mg .ROUTE .STK-MED ONE Stop: 07/01/20 07:09 Ketorolac Tromethamine (Toradol) 30 mg IVPUSH Q6H [facility] Stop: 07/02/20 01:31 Ketorolac Tromethamine (Toradol) 30 mg IVPUSH Q6H [facility] Stop: 07/01/20 20:31 Last Admin: 07/01/20 21:02 Dose: 30 mg Documented by: Ketorolac Tromethamine (Toradol) 30 mg IVPUSH ONETIME ONE Stop: 07/02/20 03:33 Last Admin: 07/02/20 04:05 Dose: 30 mg Documented by: Metoclopramide HCl (Reglan) 10 mg IVPUSH ONETIME ONE Stop: 07/01/20 06:01 Last Admin: 07/01/20 07:26 Dose: 10 mg Documented by: Miscellaneous Medication (Phenylephrine 1 Mg/10 Ml-Ns) Confirm Administered Dose 1 mg .ROUTE .STK-MED ONE Stop: 07/01/20 08:07 Morphine Sulfate (Duramorph Pf) Confirm Administered Dose 10 mg .ROUTE .STK-MED ONE Stop: 07/01/20 07:12 Ondansetron HCl (Zofran) Confirm Administered Dose 4 mg .ROUTE .STK-MED ONE Stop: 07/01/20 07:09 Ondansetron HCl (Zofran) 4 mg IVPUSH ONETIME PRN PRN Reason: Nausea/Vomiting Oxytocin (Pitocin) Confirm Administered Dose 10 unit .ROUTE .STK-MED ONE Stop: 07/01/20 07:09 Oxytocin (Pitocin) Confirm Administered Dose 10 unit .ROUTE .STK-MED ONE Stop: 07/01/20 07:10 Scopolamine (Transderm-Scop) 1.5 mg TOP ONETIME ONE Stop: 07/01/20 07:37 Last Admin: 07/01/20 07:43 Dose: 1.5 mg Documented by: Sodium Chloride (Saline Flush) 10 ml FLUSH ASDIRECTED PRN PRN Reason: Keep Vein Open - Infant Interaction Infant Disposition, : in Room with Family Interaction: Holding Infant Infant Feeding: Bottle Fed Infant Support Person: - Recovery Exam Fundal Tone: Firm Fundal Level: 1 Fingerbreadths Below Umbilicus Fundal Placement: Midline Lochia Amount: Scant Lochia Color: Rubra/Red Perineum Description: Intact, Minimal Bruising/Swelling Episiotomy/Laceration: None Bladder Status: Voiding Urinary Elimination: Voided - Exam General: Alert, Oriented, Cooperative Lungs: Clear to Auscultation, Normal Respiratory Effort Cardiovascular: Regular Rate, Regular Rhythm GI/Abdominal Exam: Soft, Tender (appropriate post op) Extremities: Normal Inspection Skin: Warm, Dry, Intact Wound/Incisions: Healing Well, No Drainage - Problem List & Annotations (1) S/P repeat low transverse SNOMED Code(s): 564831389, [id number], [id number], [id number], [id number] Code(s): Z98.891 - HISTORY OF UTERINE SCAR FROM PREVIOUS SURGERY Status: Acute Current Visit: Yes - Problem List Review Problem List Initiated/Reviewed/Updated: Yes - My Orders Last 24 Hours: My Active Orders 07/02/20 12:22 Ibuprofen [Motrin] 600 mg PO Q6H PRN 07/02/20 13:50 Acetaminophen [TylenoL] 650 mg PO Q6H PRN 07/03/20 08:17 Ready for Discharge [RC] PER UNIT ROUTINE - Assessment Assessment:: POD#2 - Plan Plan:: * Routine cares * Bottle feeding * Rare mild range BP's - can follow up in clinic at time of incision check * Discharge home today
[2020-07-03 08:21] VITALS: BP 144/78; PULSE 76
== END 2020-07-03 11:30 | disposition home or self-care (01) | DRG 788 ==
LOC: JD.OB 05:29
PROVIDERS: ADMIT Obstetrics & Gynecology; ATTEND Obstetrics & Gynecology
PROC: 10D00Z1 Extraction of Products of Conception, Low, Open Approach (ICD-10-PCS; principal; 2020-07-01)
DX: O34.211 Maternal care for low transverse scar from previous cesarean delivery (principal); Z3A.39 39 weeks gestation of pregnancy; Z37.0 Single live birth; Z20.828 Contact with and (suspected) exposure to other viral communicable diseases
CPT/HCPCS: 01961; 36415; 59025; 85025; 86592; 86850; 86900; 86901; A9270-GY; J0690; J1200; J1885; J2270; J2370; J2405; J2590; J2765; J3490; J7120; J7121; U0002

== ENCOUNTER 2021-11-21 08:07 | Day surgery (SDC) | payer OTHER ==
[~2021-11-21 08:07] MED LIST changes: +Dexamethasone 4 MG/ML 5 ML MDV ONE; +Ketorolac 30 MG/ML SDV ONE; +Lactated Ringers 1,000 ML IV SCH; +Lidocaine 1% 5 ML VIAL ONE; +Lidocaine 1%/Sod Bicarbonate in NS 8.4% 1 ML Syringe IDERM PRN; +Midazolam 1 MG/ML 2 ML SDV ONE; +Ondansetron 4 MG/2 ML SDV ONE; +Propofol 200 MG/20 ML SDV ONE; +Scopolamine 1.5 MG Transdermal Patch TOP ONE; +Sodium Chloride 0.9% 10 ML Syringe FLUSH SCH; +ceFAZolin 1 GM Vial ONE; +diphenhydrAMINE 50 MG/ML SDV ONE; +fentaNYL 100 MCG/2 ML SDV ONE
[2021-11-21] MEDS ORDERED: Sodium Chloride 0.9% 100 ML ONE (08:15)
[2021-11-21] MEDS ORDERED: Dexmedetomidine 200 MCG/2 ML SDV ONE (08:15)
[2021-11-21] MEDS ORDERED: Ondansetron 4 MG/2 ML SDV IVPUSH PRN (09:26)
[2021-11-21] MEDS ORDERED: fentaNYL 100 MCG/2 ML SDV IVPUSH PRN (09:26)
[2021-11-21] MEDS ORDERED: HYDROmorphone 0.5 MG/0.5 ML Syringe IVPUSH PRN (09:26)
[2021-11-21] MEDS ORDERED: Ibuprofen 600 MG Tab PO PRN (09:47)
[2021-11-21 11:59] VITALS: BP 126/60; PULSE 82
== END 2021-11-21 11:30 | disposition home or self-care (01) ==
LOC: JD.SDS 08:07
PROVIDERS: ATTEND Obstetrics & Gynecology
DX: N85.8 Other specified noninflammatory disorders of uterus (principal); N92.0 Excessive and frequent menstruation with regular cycle; E66.9 Obesity, unspecified; J30.9 Allergic rhinitis, unspecified; F32.A Depression, unspecified; Z88.2 Allergy status to sulfonamides; Z79.899 Other long term (current) drug therapy; Z98.890 Other specified postprocedural states; Z68.41 Body mass index [BMI] 40.0-44.9, adult; Z90.49 Acquired absence of other specified parts of digestive tract
CPT/HCPCS: 58563; A9270; J0690; J1100; J1200; J1885; J2250; J2405; J2704; J3010; J7120; 00952